=== PATIENT | female | born 1985 | race Caucasian/White ===

== ENCOUNTER → 2016-06-18 | Outpatient (CLI) | payer OTHER ==
[~2016-06-18] MED LIST: BENTYL20 MG PO; COLESTIPOL HCL500 GM PO; LOPRESSOR PO; OMEPRAZOLE40 M1 PO; PHENERGAN25 MG PO; PRINIVIL10 MG PO; XIFAXAN550 MG PO
[2016-06-18 10:17] LABS: BASOPHIL# 0.1 X10e3 (0-0.3); BASOPHIL% 0.9 % (0-2.5); EOSINOPHIL# 0.1 X10e3 (0-0.7); EOSINOPHIL% 0.9 % (0.0-7.0); HEMATOCRIT 41.4 % (35.0-45.0); HEMOGLOBIN 13.8 gm/dL (12.0-16.0); LYMPHOCYTE# 2.2 X10e3 (1.0-3.5); LYMPHOCYTE% 23.1 % (17.0-45.0); MEAN CORPUSCULAR HEMOGLOBIN 34.3 PG (28-34); MEAN CORPUSCULAR HGB CONC 33.3 g/dL (30-36); MEAN PLATELET VOLUME 8.1 FL (6.5-11.5); MONOCYTE# 1.3 X10e3 (0-1.0); MONOCYTE% 14.1 % (3.0-12.0); NEUTROPHIL# 5.8 X10e3 (1.5-7.1); PLATELET COUNT 393 X10e3 (140-420); RED BLOOD COUNT 4.02 X10e (3.90-5.30); RED CELL DISTRIBUTION WIDTH 16.4 % (11.0-15.5); WHITE BLOOD COUNT 9.5 X10e3 (4.0-10.5)
[2016-06-18 10:19] LABS: BUN/CREATININE RATIO 12.85; CALCIUM SERUM 9.6 mg/dL (8.4-10.2); CREATININE SERUM 0.7 mg/dL (0.6-1.4); GLOM FILT RATE Estimated 115.5 mL/min (>60); POTASSIUM 4.1 mmol/L (3.5-5.1)
[2016-06-18 10:34] LABS: DIFF IND NO
[2016-06-18 10:45] LABS: URINE BILIRUBIN NEG (NEG); URINE BLOOD NEG (NEG); URINE COLOR DK YELLOW; URINE GLUCOSE NEG (NORM); URINE KETONE TRACE (NEG); URINE LEUKOCYTE ESTERASE NEG (NEG); URINE NITRATE NEG (NEG); URINE PH 5.5 (5-8); URINE PROTEIN TRACE (NEG); URINE SPECIFIC GRAVITY 1.025 (1.003-1.035); URINE UROBILINOGEN 0.2 MG/DL (NORM)
[2016-06-18 10:46] LABS: MICRO INDICATED? YES; URINE APPEARANCE SL HAZY
[2016-06-18 10:56] LABS: URINE BACTERIA 3+ (NEG); URINE MUCUS PRESENT; URINE SQUAMOUS EPITHELIAL CELL MANY /[HPF]
== END | disposition home or self-care (01) ==
LOC: SLAB 09:40
PROVIDERS: Internal Medicine Nephrology
DX: I10 Essential (primary) hypertension (principal)
CPT/HCPCS: 36415; 80048; 81003; 85025

== ENCOUNTER 2016-09-10 10:16 | Emergency (ER) | payer OTHER ==
--- NOTE | ~2016-09-10 | CT101 ---
[facility] A Service [facility] RADIOLOGY TEXT RESULTS PATIENT: JAGRUTI SHARPE LOCATION: SED : 83 UNIT #: [id number] AGE: [address]: Cory Vaughn MD SEX: F ORDER DR: [id number] [address] [address] [id number] MR#: [id number] Acc #: [id number] NAME: JAGRUTI SHARPE : 1985 SEX: F STUDY DATE/TIME: 09/10/2016 10:41 UNIT: SED ROOM: STUDY DESCRIPTION: CT Maxillofacial Area Wo Cont Attending Physician: Cory Vaughn M.D. Ordering Physician: Cory Vaughn M.D. Primary Care Physician: Jose Redmond M.D. MEDICAL IMAGING REPORT This report is preliminary unless electronic signature is present. EXAM Maxillofacial CT HISTORY Left-sided jaw pain occurring at the dentist this morning TECHNIQUE Axial imaging was obtained through the maxillofacial area and evaluated at bone and soft tissue windows with multiplanar reformats. This CT exam was performed with one or more of the following radiation dose reduction techniques: automatic control, adjustment of mA and/or kV according to patient size, and iterative reconstruction. FINDINGS There is anterior dislocation of the left temporal mandibular joint. The right temporomandibular joint is in place. No fractures are seen. No soft tissue abnormalities are seen except for minimal mucosal thickening in the floor of the left maxillary sinus. IMPRESSION Anterior dislocation of the left TMJ is noted. No bony abnormalities are seen otherwise. Dictated by... Doug Hernandez M.D. THIS IS AN ELECTRONICALLY VERIFIED REPORT Doug Hernandez M.D. at 09/10/2016 3:39 PM RLF/rnr TD: 09/10/2016 13:13 JOB #: [id number] [facility] A Service [facility] RADIOLOGY TEXT RESULTS PATIENT: JAGRUTI SHARPE LOCATION: SED : 83 UNIT #: [id number] AGE: [address]: Cory aVughn MD SEX: F ORDER DR: MEDICAL IMAGING REPORT Page 1 of 1
== END 2016-09-10 11:28 | disposition home or self-care (01) ==
LOC: SED 10:16
DX: S03.00XA Dislocation of jaw, unspecified side, initial encounter (principal); F17.210 Nicotine dependence, cigarettes, uncomplicated; Z79.899 Other long term (current) drug therapy; X58.XXXA Exposure to other specified factors, initial encounter
CPT/HCPCS: 21451; 70486; 99283

== ENCOUNTER → 2016-11-04 | Outpatient (CLI) | payer OTHER ==
[2016-11-04 12:04] LABS: URINE APPEARANCE CLEAR; URINE BILIRUBIN NEG (NEG); URINE BLOOD NEG (NEG); URINE COLOR YELLOW; URINE GLUCOSE NEG (NORM); URINE KETONE NEG (NEG); URINE LEUKOCYTE ESTERASE NEG (NEG); URINE NITRATE NEG (NEG); URINE PROTEIN NEG (NEG); URINE UROBILINOGEN 0.2 MG/DL (NORM)
[2016-11-04 12:10] LABS: MICRO INDICATED? NO
[2016-11-04 12:13] LABS: ALBUMIN SERUM 4.2 g/dL (3.5-5.0); BILIRUBIN,TOTAL 0.6 mg/dL (0.2-2.0); BUN/CREATININE RATIO 32.85; CALCIUM SERUM 8.8 mg/dL (8.4-10.2); CREATININE SERUM 0.7 mg/dL (0.6-1.4); GLOM FILT RATE Estimated 114.6 mL/min (>60); POTASSIUM 4.2 mmol/L (3.5-5.1)
== END | disposition home or self-care (01) ==
LOC: SLAB 11:21
PROVIDERS: Internal Medicine Nephrology
DX: I10 Essential (primary) hypertension (principal)
CPT/HCPCS: 36415; 80053; 81003